=== PATIENT | female | born 1945 | race Caucasian/White ===

== ENCOUNTER 2018-05-08 06:20 | Day surgery (SDC) | payer OTHER ==
[~2018-05-08] VITALS: Ht 165.1 cm; Wt 82.1 kg
[2018-05-08] MEDS ORDERED: CLINDAMYCIN PHOS 600 MG/ D5W 50 ML PREMIX IV ONE (07:00)
[2018-05-08] MEDS ORDERED: PROPOFOL 200MG/ 20ML VIAL (DIPRIVAN) IV ONE (07:45)
[2018-05-08] MEDS ORDERED: BUPIVACAINE /PF 0.25% 30 ML VIAL INJ ONE ×2 (07:45→08:35)
[2018-05-08] MEDS ORDERED: LR 1,000 ML IV.SOLN IV ONE (07:45)
[2018-05-08] MEDS ORDERED: fentaNYL CITRATE/PF 100 MCG/2 ML AMP IVP ONE (07:45)
[2018-05-08] MEDS ORDERED: NS IRRIG SOLN 1000 ML IR ONE (07:45)
[2018-05-08] MEDS ORDERED: SEVOFLURANE 15 MIN GAS INH ONE (07:45)
[2018-05-08] MEDS ORDERED: MIDAZOLAM HCL 5 MG/5 ML VIAL IVP ONE (07:45)
[2018-05-08] MEDS ORDERED: LR 1,000 ML IV SCH (08:34)
[2018-05-08] MEDS ORDERED: D5/0.45 NS 1,000 ML IV SCH (08:42)
[2018-05-08] MEDS ORDERED: METOCLOPRAMIDE HCL 10 MG/2 ML VIAL IVP PRN (08:45)
[2018-05-08] MEDS ORDERED: MORPHINE 4 MG/ML INJ. SYRINGE IVP PRN ×3 (08:45)
[2018-05-08 09:34] VITALS: BP_SYST 116
[2018-05-08] MEDS ORDERED: HYDROcodone/ACETAMIN 5-325 MG TAB (NORCO/ VICODIN) PO PRN ×2 (12:00)
[2018-05-08] MEDS ORDERED: HYDROmorphone 1 MG INJ. 1 MG/ML AMPUL IVP PRN (12:00)
== END 2018-05-08 12:50 | disposition home or self-care (01) ==
LOC: SDS 06:20
PROVIDERS: ATTEND Colon & Rectal Surgery
DX: R59.1 Generalized enlarged lymph nodes (principal); D64.9 Anemia, unspecified; E78.01 Familial hypercholesterolemia; I10 Essential (primary) hypertension; R56.9 Unspecified convulsions; Z86.010 Personal history of colon polyps; E78.5 Hyperlipidemia, unspecified; Z68.30 Body mass index [BMI] 30.0-30.9, adult; Z80.0 Family history of malignant neoplasm of digestive organs; Z83.3 Family history of diabetes mellitus; E55.9 Vitamin D deficiency, unspecified; F32.9 Major depressive disorder, single episode, unspecified; E66.9 Obesity, unspecified; Z79.899 Other long term (current) drug therapy
CPT/HCPCS: 38525; 76881; 88307; 88341; 88342; J2250; J2704; J3010; J3490 ×2; J7120; 88305; 88361